=== PATIENT | male | born 1975 | race Caucasian/White ===

== ENCOUNTER 2021-11-19 09:49 | Emergency (ER) | payer OTHER ==
[2021-11-19 10:20] VITALS: BP 148/107; PULSE 100; RESP 16; TEMP 98.4
--- NOTE | 2021-11-19 10:32 | ED ---
General Adult HPI - General Chief complaint: Abdominal Pain Stated complaint: left side pain Time Seen by Provider: 11/19/21 10:00 Source: patient, RN notes reviewed, old records reviewed Mode of arrival: ambulatory Limitations: no limitations - History of Present Illness Initial comments: This a 46-year-old male who presents emergency department stating that for about a week he was constipated and then he started taking some laxatives and fluid adjacent any unable to have a bowel movement ever since. Patient states he's been having some burning sensation in the left flank area and states it seems to come and go in association with having a bowel movement or passing gas. Patient denies any dysuria hematuria urinary frequency. Patient denies any abdominal surgeries. Patient denies any nausea vomiting. Patient denies any fever chills per patient denies any cough. Patient states he had COVID over Dre break. - Related Data Allergies Allergy/AdvReac Type Severity Reaction Status Date / Time ciprofloxacin Allergy Unknown Verified 11/19/21 10:01 Review of Systems ROS Statement: Those systems with pertinent positive or pertinent negative responses have been documented in the HPI. ROS Other: All systems not noted in ROS Statement are negative. Past Medical History Past Medical History: GERD/Reflux Additional Past Medical History / Comment(s): covid History of Any Multi-Drug Resistant Organisms: None Reported Past Surgical History: No Surgical Hx Reported Past Psychological History: No Psychological Hx Reported Smoking Status: Former smoker Past Alcohol Use History: Occasional Past Drug Use History: Marijuana General Exam - General Exam Comments Initial Comments: GENERAL: Patient is well-developed and well-nourished. Patient is nontoxic and well- hydrated and is in no acute distress. ENT: Neck is soft and supple. No significant lymphadenopathy is noted. Oropharynx is clear. Moist mucous membranes. Neck has full range of motion without eliciting any pain. EYES: The sclera were anicteric and conjunctiva were pink and moist. Extraocular movements were intact and pupils were equal round and reactive to light. Eye lids were unremarkable. PULMONARY: Unlabored respirations. Good breath sounds bilaterally. No audible rales rhonchi or wheezing was noted. CARDIOVASCULAR: There is a regular rate and rhythm without any murmurs gallops or rubs. ABDOMEN: Soft and nontender with normal bowel sounds. SKIN: Skin is clear with no lesions or rashes and otherwise unremarkable. NEUROLOGIC: Patient is alert and oriented x3. Cranial nerves II through XII are grossly intact. Motor and sensory are also intact. Normal speech, volume and content. Symmetrical smile. MUSCULOSKELETAL: Normal extremities with adequate strength and full range of motion. LYMPHATICS: No significant lymphadenopathy is noted PSYCHIATRIC: Normal psychiatric evaluation. Limitations: no limitations Course Vital Signs 11/19/21 11/19/21 09:58 10:12 Temperature 98 F 98.4 F Pulse Rate 75 100 Respiratory 18 16 Rate Blood Pressure 162/98 148/107 O2 Sat by Pulse 100 94 L Oximetry Medical Decision Making - Medical Decision Making KUB shows no acute abnormality - Lab Data Result diagrams: 11/19/21 10:42 11/19/21 10:42 Lab Results 11/19/21 11/19/21 11/19/21 Range/Units 10:42 10:42 10:42 WBC 7.6 (3.8-10.6) k/uL RBC 6.02 H (4.30-5.90) m/uL Hgb 18.0 H (13.0-17.5) gm/dL Hct 52.0 (39.0-53.0) % MCV 86.4 (80.0-100.0) fL MCH 29.9 (25.0-35.0) pg MCHC 34.6 (31.0-37.0) g/dL RDW 13.0 (11.5-15.5) % Plt Count 220 (150-450) k/uL MPV 8.1 Neutrophils % 75 % Lymphocytes % 17 % Monocytes % 5 % Eosinophils % 1 % Basophils % 0 % Neutrophils # 5.7 (1.3-7.7) k/uL Lymphocytes # 1.3 (1.0-4.8) k/uL Monocytes # 0.4 (0-1.0) k/uL Eosinophils # 0.1 (0-0.7) k/uL Basophils # 0.0 (0-0.2) k/uL Sodium 137 (137-145) mmol/L Potassium 4.3 (3.5-5.1) mmol/L Chloride 105 (98-107) mmol/L Carbon Dioxide 22 (22-30) mmol/L Anion Gap 10 mmol/L BUN 12 (9-20) mg/dL Creatinine 0.90 (0.66-1.25) mg/dL Est GFR (CKD-EPI)AfAm >90 (>60 ml/min/1.73 sqM) Est GFR (CKD-EPI)NonAf >90 (>60 ml/min/1.73 sqM) Glucose 109 H (74-99) mg/dL Calcium 10.4 H (8.4-10.2) mg/dL Total Bilirubin 1.2 (0.2-1.3) mg/dL AST 23 (17-59) U/L ALT 37 (4-49) U/L Alkaline Phosphatase 91 (38-126) U/L Total Protein 8.4 H (6.3-8.2) g/dL Albumin 5.2 H (3.5-5.0) g/dL Urine Color Yellow Urine Appearance Clear (Clear) Urine pH 6.5 (5.0-8.0) Ur Specific [place] 1.029 (1.001-1.035) Urine Protein Trace H (Negative) Urine Glucose (UA) Negative (Negative) Urine Ketones 1+ H (Negative) Urine Blood Negative (Negative) Urine Nitrite Negative (Negative) Urine Bilirubin Negative (Negative) Urine Urobilinogen <2.0 (<2.0) mg/dL Ur Leukocyte Esterase Negative (Negative) Disposition Clinical Impression: Left flank pain Disposition: HOME SELF-CARE Condition: Good Instructions (If sedation given, give patient instructions): Flank Pain (ED) Is patient prescribed a controlled substance at d/c from ED?: No Referrals: Kelli Alexander DO [Primary Care Provider] - 1-2 days Time of Disposition: 11:34
[2021-11-19 10:51] LABS: Basophils % (A) 0 %; Eosinophils # (A) 0.1 k/uL (0-0.7); Eosinophils % (A) 1 %; Lymphocytes # (A) 1.3 k/uL (1.0-4.8); Lymphocytes % (A) 17 %; MCH 29.9 pg (25.0-35.0); MCHC 34.6 g/dL (31.0-37.0); MCV 86.4 fL (80.0-100.0); Mean Platelet Volume 8.1; Monocytes # (A) 0.4 k/uL (0-1.0); Monocytes % (A) 5 %; Neutrophils # (A) 5.7 k/uL (1.3-7.7); Neutrophils % (A) 75 %; Platelet Count 220 k/uL (150-450); RBC 6.02 m/uL (4.30-5.90); WBC 7.6 k/uL (3.8-10.6)
[2021-11-19 11:04] LABS: ALT 37 U/L (4-49); AST 23 U/L (17-59); African American GFR (CKD) >90 (>60 ml/min/1.73 sqM); Albumin 5.2 g/dL (3.5-5.0); Alkaline Phosphatase 91 U/L (38-126); Anion Gap 10 mmol/L; Blood Urea Nitrogen 12 mg/dL (9-20); Calcium 10.4 mg/dL (8.4-10.2); Carbon Dioxide 22 mmol/L (22-30); Chloride 105 mmol/L (98-107); Glucose 109 mg/dL (74-99); Non-African American GFR(CKD) >90 (>60 ml/min/1.73 sqM); Potassium 4.3 mmol/L (3.5-5.1); Sodium 137 mmol/L (137-145); Total Bilirubin 1.2 mg/dL (0.2-1.3); Total Protein 8.4 g/dL (6.3-8.2)
[2021-11-19 11:15] LABS: Appearance,Urine Clear (Clear); Bilirubin,Urine Negative (Negative); Blood,Urine Negative (Negative); Color,Urine Yellow; Glucose,Urine (UA) Negative (Negative); Ketones,Urine 1+ (Negative); Leukocyte Esterase,Urine Negative (Negative); Nitrite,Urine Negative (Negative); PH, Urine 6.5 (5.0-8.0); Protein,Urine Trace (Negative); Specific Gravity,Urine 1.029 (1.001-1.035); Urobilinogen,Urine <2.0 mg/dL (<2.0)
--- NOTE | 2021-11-19 11:31 | XR ---
EXAMINATION TYPE: XR KUB DATE OF EXAM: 11/19/2021 COMPARISON: NONE HISTORY: Pain TECHNIQUE: One view abdominal series FINDINGS: The osseous structures are intact. The bowel gas pattern is nonspecific. Lung bases are clear. Hype rtrophic and degenerative change of the spine. IMPRESSION: 1. Nonspecific abdomen.
== END 2021-11-19 12:18 | disposition home or self-care (01) ==
LOC: EC 09:49
DX: R10.9 Unspecified abdominal pain (principal); K21.9 Gastro-esophageal reflux disease without esophagitis; F12.90 Cannabis use, unspecified, uncomplicated; Z87.891 Personal history of nicotine dependence
CPT/HCPCS: 36415; 74018; 80053; 81003; 85025; 99284

== ENCOUNTER 2022-03-13 23:40 | Emergency (ER) | payer OTHER ==
[2022-03-13 23:59] VITALS: BP 153/101; PULSE 100; RESP 18; TEMP 98.2
--- NOTE | 2022-03-14 00:22 | XR ---
EXAMINATION TYPE: XR elbow complete RT DATE OF EXAM: 03/14/2022 COMPARISON: NONE HISTORY: Elbow pain TECHNIQUE: 4 views FINDINGS: I see no fracture nor dislocation. Joint spaces are normal. IMPRESSION: Negative right elbow exam.
[2022-03-14] MEDS ORDERED: KETOROLAC 15 MG/ML 1 ML VIAL IM STA (01:25)
--- NOTE | 2022-03-14 01:31 | ED ---
General Adult HPI - General Chief complaint: Extremity Injury, Upper Stated complaint: Right Elbow Injury Time Seen by Provider: 03/14/22 01:15 Source: patient, RN notes reviewed, old records reviewed Mode of arrival: ambulatory Limitations: no limitations - History of Present Illness Initial comments: 46-year-old male presents to the emergency room with right upper forearm pain. Patient states that at 9:00 this morning he was lifting his riding lawnmower and when he went to the lower it down he felt a pop in his right upper forearm. He has had pain since, worse with rotation. -: hour(s) (14) Location: right, upper extremity (forearm) Quality: sharp, constant Consistency: constant Improves with: immobilization Worsens with: movement Associated Symptoms: denies other symptoms Treatments Prior to Arrival: other (sling) - Related Data Allergies Allergy/AdvReac Type Severity Reaction Status Date / Time ciprofloxacin Allergy Unknown Verified 03/13/22 23:59 Review of Systems ROS Statement: Those systems with pertinent positive or pertinent negative responses have been documented in the HPI. ROS Other: All systems not noted in ROS Statement are negative. Past Medical History Past Medical History: GERD/Reflux Additional Past Medical History / Comment(s): covid History of Any Multi-Drug Resistant Organisms: None Reported Past Surgical History: No Surgical Hx Reported Past Psychological History: No Psychological Hx Reported Smoking Status: Former smoker Past Alcohol Use History: Occasional Past Drug Use History: Marijuana General Exam Limitations: no limitations General appearance: alert, in no apparent distress Respiratory exam: Absent: respiratory distress, accessory muscle use Cardiovascular Exam: Present: regular rate Right Elbow exam: Present: normal inspection, swelling, pain w/ pronation/supination. Absent: tenderness, abrasion, ecchymosis, deformity, crepitus, dislocation, erythema, tenderness over radial head Forearm Wrist exam: Present: tenderness. Absent: ecchymosis, deformity, dislocation, erythema, tenderness over anatomical snuff box, pain with axial thumb loading Hand Wrist exam: Present: normal inspection, full ROM. Absent: tenderness Neuro motor exam: Present: wrist extension intact, thumb opposition intact, thumb IP flexion intact, thumb adduction intact Neurosensory exam: Present: radial nerve intact, ulnar nerve intact, median nerve intact Vascular: Present: normal capillary refill. Absent: vascular compromise Neurological exam: Present: alert, oriented X3 Psychiatric exam: Present: normal affect, normal mood Skin exam: Present: warm, dry, normal color. Absent: cyanosis, diaphoretic Course Vital Signs 03/13/22 23:56 Temperature 98.2 F Pulse Rate 100 Respiratory 18 Rate Blood Pressure 153/101 O2 Sat by Pulse 97 Oximetry Medical Decision Making - Medical Decision Making X-ray of the right elbow show no fracture or dislocation. Patient has pain with flexion and extension, pronation and supination. I suspect this may be a muscle tear injury. He declined oral pain medications stating it upsets his stomach. He was agreeable to receiving a shot of Toradol. He was directed to continue wearing the sling he arrived with and follow-up with orthopedics this week. Disposition Clinical Impression: Right forearm pain Disposition: HOME SELF-CARE Condition: Good Instructions (If sedation given, give patient instructions): Arm Pain (ED) Additional Instructions: Rest, ice, elevate and wear sling until seen by orthopedics within the next week. Take Tylenol as needed for pain. Is patient prescribed a controlled substance at d/c from ED?: No Referrals: Kelli Alexander DO [Primary Care Provider] - 1-2 days Rebel Call MD [STAFF PHYSICIAN] - 1-2 days Time of Disposition: 01:30
== END 2022-03-14 02:03 | disposition home or self-care (01) ==
LOC: EC 23:40
DX: M79.631 Pain in right forearm (principal); F12.90 Cannabis use, unspecified, uncomplicated; Z87.891 Personal history of nicotine dependence
CPT/HCPCS: 96372; 99283

== ENCOUNTER 2025-01-09 10:59 | Emergency (ER) | payer OTHER ==
[2025-01-09 11:04] VITALS: TEMP 98.2
--- NOTE | 2025-01-09 11:23 | ED ---
Male Urogenital HPI - General Chief complaint: Urogenital Stated complaint: nausea dizzy Time Seen by Provider: 01/09/25 11:10 Source: patient, RN notes reviewed Mode of arrival: ambulatory Limitations: no limitations - History of Present Illness Initial comments: 49-year-old male presenting to the emergency department for complaint of perineum discomfort and overall not feeling well. Patient states 3 weeks ago he was diagnosed with a urinary tract infection and started on ciprofloxacin. he completed the full course however presented for review of perineum pressure/discomfort and states PCP treated him for prostatitis with bactrim that was started on . he began to experience urticauria and a rash of his back on Friday morning, concerning for allergic reaction, so he stopped the medication. denies hematuria, dysuria, increased urinary frequency or urgency, penile discharge, testicular tenderness, testicular erythema or swelling. admits to occasional difficulty starting urination. scheduled for outpatient CT on Friday. denies chance for STI/STD - Related Data Previous Rx's Medication Instructions Recorded Cyclobenzaprine [Flexeril] 5 mg PO Q8H PRN #15 tablet 12/07/24 Allergies Allergy/AdvReac Type Severity Reaction Status Date / Time ciprofloxacin Allergy Unknown Verified 01/09/25 11:04 sulfamethoxazole Allergy Rash/Hives Verified 01/09/25 11:04 [From Bactrim] trimethoprim [From Bactrim] Allergy Rash/Hives Verified 01/09/25 11:04 Review of Systems ROS Statement: Those systems with pertinent positive or pertinent negative responses have been documented in the HPI. ROS Other: All systems not noted in ROS Statement are negative. Past Medical History Past Medical History: GERD/Reflux Additional Past Medical History / Comment(s): covid History of Any Multi-Drug Resistant Organisms: None Reported Past Surgical History: No Surgical Hx Reported Past Psychological History: No Psychological Hx Reported Smoking Status: Former smoker Past Alcohol Use History: Occasional Past Drug Use History: Marijuana General Exam Limitations: no limitations ENT exam: Present: normal exam, mucous membranes moist Respiratory exam: Present: normal lung sounds bilaterally. Absent: respiratory distress, wheezes, rales, rhonchi, stridor Cardiovascular Exam: Present: regular rate, normal rhythm, normal heart sounds. Absent: systolic murmur, diastolic murmur, rubs, gallop, clicks GI/Abdominal exam: Present: soft, normal bowel sounds. Absent: distended, tenderness, guarding, rebound, rigid exam: Absent: testicular tenderness, urethral discharge, scrotal swelling, vertical testicular lie Extremities exam: Present: normal inspection, full ROM, normal capillary refill. Absent: tenderness, pedal edema, joint swelling, calf tenderness Back exam: Present: normal inspection. Absent: CVA tenderness (R), CVA tenderness (L) Course Vital Signs 01/09/25 01/09/25 01/09/25 11:00 13:17 14:08 Temperature 98.2 F Pulse Rate 112 H 115 H 100 Respiratory 20 18 18 Rate Blood Pressure 142/103 164/99 147/99 O2 Sat by Pulse 98 96 94 L Oximetry Medical Decision Making - Medical Decision Making Was pt. sent in by a medical professional or institution ([facility], urgent care, hospital, or custodial...) When possible be specific @ -No Did you speak to anyone other than the patient for history (EMS, parent, family, police, friend...)? What history was obtained from this source @ -No Did you review nursing and triage notes (agree or disagree)? Why? @ -I reviewed and agree with nursing and triage notes Were old charts reviewed (outside hosp., previous admission, EMS record, old EKG, old radiological studies, urgent care reports/EKG's, custodial records)? Report findings @ -No old charts were reviewed Differential Diagnosis (chest pain, altered mental status, abdominal pain women, abdominal pain men, vaginal bleeding, weakness, fever, dyspnea, syncope, headache, dizziness, GI bleed, back pain, seizure, CVA, palpatations, mental health, musculoskeletal)? @ -Differential Abdominal Pain Men: Appendicitis, cholecystitis, diverticulosis, ischemic bowel, pancreatitis, hepatitis, UTI, gastroenteritis, AAA, incarcerated hernia, bowel obstruction, constipation, inflammatory bowel, hepatitis, peptic ulcer disease, splenic infarction, perforated viscus, testicular torsion, this is not meant to be an all-inclusive list EKG interpreted by me (3pts min.). @ -None X-rays interpreted by me (1pt min.). @ -None done CT interpreted by me (1pt min.). @ -CT of the abdomen pelvis without contrast no acute intra-abdominal or pelvic process, coarse calcification of the prostate gland U/S interpreted by me (1pt. min.). @ -Scrotal ultrasound completed with no evidence of testicular torsion or intratesticular mass with good bilateral color flow and waveform seen with a left-sided varicocele What testing was considered but not performed or refused? (CT, X-rays, U/S, labs)? Why? @ -None What meds were considered but not given or refused? Why? @ -None Did you discuss the management of the patient with other professionals (professionals i.e. , [facility], [facility] [employer], lab, RT, psych nurse, child protective services social worker, science instructor, teacher, chief mechanical officer, geriatric case manager)? Give summary @ -No Was smoking cessation discussed for >3mins.? @ -No Was critical care preformed (if so, how long)? @ -No Were there social determinants of health that impacted care today? How? (Homelessness, low income, unemployed, alcoholism, drug addiction, transportation, low edu. Level, literacy, decrease access to med. care, snf, rehab)? @ -No Was there de-escalation of care discussed even if they declined (Discuss DNR or withdrawal of care, Hospice)? DNR status @ -No What co-morbidities impacted this encounter? (DM, HTN, Smoking, COPD, CAD, Cancer, CVA, ARF, Chemo, Hep., AIDS, mental health diagnosis, sleep apnea, morbid obesity)? @ -None Was patient admitted / discharged? Hospital course, mention meds given and route, prescriptions, significant lab abnormalities, going to OR and other pertinent info. @ -discharged. 49-year-old male presenting with perineum discomfort. Overall patient is well-appearing in no signs of distress. Laboratory testing including CBC, CMP, urinalysis unremarkable. CT abdomen pelvis no acute process. On discussion with the patient after results he states that he has been experiencing intermittent testicular discomfort however denied initially. Luis huddleston will now undergo ultrasound imaging of the scrotum for further evaluation. Scrotal ultrasound no evidence of testicular torsion, left-sided varicocele that is normal the patient is a diagnosed in 2007. He is provided with outpatient urology follow-up discharge and follow-up with scheduled with PCP next week. Case discussed with Dr. Israel Undiagnosed new problem with uncertain prognosis? @ -No Drug Therapy requiring intensive monitoring for toxicity (Heparin, Nitro, Insulin, Cardizem)? @ -No Were any procedures done? @ -No Diagnosis/symptom? @ -Perineum discomfort, varicocele Acute, or Chronic, or Acute on Chronic? @ -Acute Uncomplicated (without systemic symptoms) or Complicated (systemic symptoms)? @ -Uncomplicated Side effects of treatment? @ -No Exacerbation, Progression, or Severe Exacerbation? @ -No Poses a threat to life or bodily function? How? (Chest pain, USA, MS, pneumonia, PE, COPD, DKA, ARF, appy, cholecystitis, CVA, Diverticulitis, Homicidal, Suicidal, threat to staff... and all critical care pts) @ -No - Lab Data Result diagrams: 01/09/25 11:45 01/09/25 11:45 Lab Results 01/09/25 01/09/25 01/09/25 Range/Units 11:45 11:45 11:45 WBC 9.2 (3.8-10.6) k/uL RBC 6.26 H (4.30-5.90) m/uL Hgb 17.9 H (13.0-17.5) gm/dL Hct 53.5 H (39.0-53.0) % MCV 85.4 (80.0-100.0) fL MCH 28.6 (25.0-35.0) pg MCHC 33.5 (31.0-37.0) g/dL RDW 12.8 (11.5-15.5) % Plt Count 257 (150-450) k/uL MPV 7.8 Neutrophils % 80 % Lymphocytes % 13 % Monocytes % 4 % Eosinophils % 1 % Basophils % 0 % Neutrophils # 7.4 (1.3-7.7) k/uL Lymphocytes # 1.2 (1.0-4.8) k/uL Monocytes # 0.4 (0-1.0) k/uL Eosinophils # 0.1 (0-0.7) k/uL Basophils # 0.0 (0-0.2) k/uL Sodium 135 L (137-145) mmol/L Potassium 4.6 (3.5-5.1) mmol/L Chloride 103 (98-107) mmol/L Carbon Dioxide 19 L (22-30) mmol/L Anion Gap 13 mmol/L BUN 10 (9-20) mg/dL Creatinine 0.85 (0.66-1.25) mg/dL Est GFR (CKD-EPI)AfAm >90 (>60 ml/min/1.73 sqM) Est GFR (CKD-EPI)NonAf >90 (>60 ml/min/1.73 sqM) Glucose 106 H (74-99) mg/dL Plasma Lactic Acid Flynn (0.7-2.0) mmol/L Calcium 9.8 (8.4-10.2) mg/dL Total Bilirubin 1.1 (0.2-1.3) mg/dL AST 24 (17-59) U/L ALT 56 H (4-49) U/L Alkaline Phosphatase 84 (38-126) U/L Total Protein 8.2 (6.3-8.2) g/dL Albumin 5.2 H (3.5-5.0) g/dL Urine Color Light Yellow Urine Appearance Clear (Clear) Urine pH 6.5 (5.0-8.0) Ur Specific [place] 1.017 (1.001-1.035) Urine Protein Negative (Negative) Urine Glucose (UA) Negative (Negative) Urine Ketones 1+ H (Negative) Urine Blood Negative (Negative) Urine Nitrite Negative (Negative) Urine Bilirubin Negative (Negative) Urine Urobilinogen <2.0 (<2.0) mg/dL Ur Leukocyte Esterase Negative (Negative) 01/09/25 Range/Units 11:45 WBC (3.8-10.6) k/uL RBC (4.30-5.90) m/uL Hgb (13.0-17.5) gm/dL Hct (39.0-53.0) % MCV (80.0-100.0) fL MCH (25.0-35.0) pg MCHC (31.0-37.0) g/dL RDW (11.5-15.5) % Plt Count (150-450) k/uL MPV Neutrophils % % Lymphocytes % % Monocytes % % Eosinophils % % Basophils % % Neutrophils # (1.3-7.7) k/uL Lymphocytes # (1.0-4.8) k/uL Monocytes # (0-1.0) k/uL Eosinophils # (0-0.7) k/uL Basophils # (0-0.2) k/uL Sodium (137-145) mmol/L Potassium (3.5-5.1) mmol/L Chloride (98-107) mmol/L Carbon Dioxide (22-30) mmol/L Anion Gap mmol/L BUN (9-20) mg/dL Creatinine (0.66-1.25) mg/dL Est GFR (CKD-EPI)AfAm (>60 ml/min/1.73 sqM) Est GFR (CKD-EPI)NonAf (>60 ml/min/1.73 sqM) Glucose (74-99) mg/dL Plasma Lactic Acid [place] 0.9 (0.7-2.0) mmol/L Calcium (8.4-10.2) mg/dL Total Bilirubin (0.2-1.3) mg/dL AST (17-59) U/L ALT (4-49) U/L Alkaline Phosphatase (38-126) U/L Total Protein (6.3-8.2) g/dL Albumin (3.5-5.0) g/dL Urine Color Urine Appearance (Clear) Urine pH (5.0-8.0) Ur Specific [place] (1.001-1.035) Urine Protein (Negative) Urine Glucose (UA) (Negative) Urine Ketones (Negative) Urine Blood (Negative) Urine Nitrite (Negative) Urine Bilirubin (Negative) Urine Urobilinogen (<2.0) mg/dL Ur Leukocyte Esterase (Negative) Disposition Clinical Impression: Perineum pain, male, Varicocele Disposition: HOME SELF-CARE Condition: Good Instructions (If sedation given, give patient instructions): Varicocele (ED) Additional Instructions: Please return to the Emergency Department if symptoms worsen or any other concerns. Is patient prescribed a controlled substance at d/c from ED?: No Referrals: Kelli Alexandre DO [Primary Care Provider] - 1-2 days Valentin Osei MD [STAFF PHYSICIAN] - 1-2 days Time of Disposition: 13:50
[2025-01-09 11:52] LABS: Appearance,Urine Clear (Clear); Bilirubin,Urine Negative (Negative); Blood,Urine Negative (Negative); Color,Urine Light Yellow; Glucose,Urine (UA) Negative (Negative); Ketones,Urine 1+ (Negative); Leukocyte Esterase,Urine Negative (Negative); Nitrite,Urine Negative (Negative); PH, Urine 6.5 (5.0-8.0); Protein,Urine Negative (Negative); Specific Gravity,Urine 1.017 (1.001-1.035); Urobilinogen,Urine <2.0 mg/dL (<2.0)
[2025-01-09 12:01] LABS: ALT 56 U/L (4-49); AST 24 U/L (17-59); African American GFR (CKD) >90 (>60 ml/min/1.73 sqM); Albumin 5.2 g/dL (3.5-5.0); Alkaline Phosphatase 84 U/L (38-126); Anion Gap 13 mmol/L; Blood Urea Nitrogen 10 mg/dL (9-20); Calcium 9.8 mg/dL (8.4-10.2); Carbon Dioxide 19 mmol/L (22-30); Chloride 103 mmol/L (98-107); Glucose 106 mg/dL (74-99); Non-African American GFR(CKD) >90 (>60 ml/min/1.73 sqM); Potassium 4.6 mmol/L (3.5-5.1); Sodium 135 mmol/L (137-145); Total Bilirubin 1.1 mg/dL (0.2-1.3); Total Protein 8.2 g/dL (6.3-8.2)
--- NOTE | 2025-01-09 12:14 | CT ---
EXAMINATION TYPE: CT abdomen pelvis wo con CT DLP: 585.7 mGycm, Automated exposure control for dose reduction was used. DATE OF EXAM: 01/09/2025 12:06 PM COMPARISON: KUB radiograph 11/19/2021 CLINICAL INDICATION:Male, 49 years old with history of pelvic pain, hx UTI, groin discomfort; Pelvic pain, groin discomfort TECHNIQUE: Standard CT of the abdomen and pelvis without IV or oral contrast. Lack of IV or oral co ntrast limits evaluation of solid and hollow organ viscera. Coronal and sagittal reformats were perfo rmed. FINDINGS: LOWER CHEST: Unremarkable noncontrast appearance ABDOMEN LIVER: Unremarkable noncontrast appearance GALLBLADDER AND BILE DUCTS: Unremarkable noncontrast appearance PANCREAS: Unremarkable noncontrast appearance SPLEEN: Unremarkable noncontrast appearance ADRENAL GLANDS: Unremarkable noncontrast appearance. KIDNEYS AND URETERS: No evidence of renal calculi. No ureteral calculus. No hydronephrosis. Left tim l sinus cysts measuring up to 5 cm. No perinephric fat stranding or fluid collections. PELVIS BLADDER: Underdistended but grossly unremarkable. REPRODUCTIVE: Coarse calcifications of the prostate gland are identified. ABDOMEN & PELVIS STOMACH AND BOWEL: Stomach and duodenum are unremarkable. No focal bowel wall thickening or surroundi ng inflammatory changes. The appendix is within normal limits. No evidence of bowel obstruction. PERITONEUM: No evidence of pneumoperitoneum or free fluid. VASCULATURE: No evidence of aortic aneurysm. Few pelvic phleboliths. MUSCULOSKELETAL: No acute osseous abnormalities LYMPH NODES: No gross evidence for lymphadenopathy. SOFT TISSUE/ABDOMINAL WALL: Small fat filled umbilical hernia. IMPRESSION: No CT evidence for acute abdominis/pelvic process within limitations of a noncontrast exam. [facility], , 01/09/2025 12:12 PM
[2025-01-09 12:18] LABS: Basophils % (A) 0 %; Eosinophils # (A) 0.1 k/uL (0-0.7); Eosinophils % (A) 1 %; HCT 53.5 % (39.0-53.0); HGB 17.9 gm/dL (13.0-17.5); Lymphocytes # (A) 1.2 k/uL (1.0-4.8); Lymphocytes % (A) 13 %; MCH 28.6 pg (25.0-35.0); MCHC 33.5 g/dL (31.0-37.0); MCV 85.4 fL (80.0-100.0); Mean Platelet Volume 7.8; Monocytes # (A) 0.4 k/uL (0-1.0); Monocytes % (A) 4 %; Neutrophils # (A) 7.4 k/uL (1.3-7.7); Neutrophils % (A) 80 %; Platelet Count 257 k/uL (150-450); RBC 6.26 m/uL (4.30-5.90); RDW 12.8 % (11.5-15.5); WBC 9.2 k/uL (3.8-10.6)
[2025-01-09 13:19] VITALS: RESP 18
--- NOTE | 2025-01-09 13:45 | US ---
EXAMINATION TYPE: US scrotum with doppler. DATE OF EXAM: 01/09/2025 COMPARISON: NONE CLINICAL INDICATION: Male, 49 years old with history of Intermittent discomfort over 2 weeks; Intermi ttent discomfort for 2 weeks TECHNIQUE: Grayscale, color Doppler and spectral Doppler imaging of the scrotum. FINDINGS: EXAM MEASUREMENTS: TESTICLES: Right Testicle: 4.9 x 2.2 x 3.5 cm Left Testicle: 4.6 x 2.0 x 3.1 cm EPIDIDYMIS HEAD: Right Epididymis: 0.9 cm Left Epididymis: 1.0 cm Doppler performed to assess for testicular vascularity; good bilateral color flow and spectral wavefo florian are seen. There is no evidence of testicular torsion. Presence of hydroceles: no Presence of varicoceles: yes, adjacent to left testicle IMPRESSION: 1. No ultrasound evidence for testicular torsion or intratesticular mass. 2. Left-sided varicocele. [facility], , 01/09/2025 1:43 PM
[2025-01-09 14:11] VITALS: BP 147/99; PULSE 100
[2025-01-09] MEDS: ONDANSETRON 4 MG ODT STARTER PACK 2 TAB BTL PO STA (14:24)
[2025-01-10 12:47] LABS: N. gonorrhoeae,PCR Negative (Negative)
[2025-01-10 12:56] LABS: C. trachomatis,PCR Negative (Negative)
== END 2025-01-09 14:25 | disposition home or self-care (01) ==
LOC: EC 10:59
DX: R10.2 Pelvic and perineal pain (principal); I86.1 Scrotal varices; Z87.891 Personal history of nicotine dependence; Z88.1 Allergy status to other antibiotic agents; Z88.2 Allergy status to sulfonamides
CPT/HCPCS: 36415; 80053; 83605; 85025; 81003; 87491; 87591; 93975; 76870; 74176; 99284; S0119

== ENCOUNTER → 2025-02-07 | Outpatient (CLI) | payer OTHER ==
--- NOTE | 2025-02-07 11:31 | XR ---
EXAMINATION TYPE: XR orbit detect foreign body DATE OF EXAM: 02/07/2025 11:03 AM COMPARISON: CLINICAL INDICATION: Male, 49 years old with history of Z18.1 RETAINED METAL FRAGMENTS, MRI CLEARANCE ; [facility] TECHNIQUE: 3 views FINDINGS: No retained metallic fragments identified within either orbit or along the visualized face. Orbits ap pear symmetric. Paranasal sinuses appear largely clear. IMPRESSION: No retained metal fragments identified. Cleared for MRI. [facility], Workstation: [id number], 02/07/2025 11:28 AM
== END | disposition home or self-care (01) ==
LOC: RADXRMAIN 10:47
PROVIDERS: ATTEND Family Medicine
DX: Z18.10 Retained metal fragments, unspecified (principal)
CPT/HCPCS: 70030

== ENCOUNTER → 2025-02-08 | Outpatient (CLI) | payer OTHER ==
--- NOTE | 2025-02-08 18:11 | MR ---
EXAMINATION TYPE: MR pelvis wo con DATE OF EXAM: 02/08/2025 COMPARISON: CT abdomen and pelvis 01/09/2025 CLINICAL INDICATION:Male, 49 years old with history of R10.2 PELVIC AND PERINEAL PAIN; [facility], TECHNIQUE: Triplane multisequence imaging was performed of the pelvis without the administration of intravenous contrast. This limits evaluation due to lack of intravenous contrast. FINDINGS: Reproductive: Prostate: Unremarkable. Seminal vesicle's: Unremarkable. Testes: Unremarkable. Bladder: Unremarkable. Bowel: Unremarkable as visualized. Peritoneum: No free fluid. No evidence of adenopathy. Vasculature: Unremarkable. Abdominal wall/soft tissues: Small fat filled umbilical hernia. Musculoskeletal: Bone marrow signal is within normal signal intensity. IMPRESSION: No MR evidence of abnormality corresponding to patient's symptomology within limitations of a noncont rast exam. [facility], , 02/08/2025 6:09 PM
== END | disposition home or self-care (01) ==
LOC: RADMRIMAIN 16:23
PROVIDERS: ATTEND Family Medicine
DX: K42.9 Umbilical hernia without obstruction or gangrene (principal)
CPT/HCPCS: 72195